=== PATIENT | female | born 1990 | race American Indian/Alaskan Native ===

== ENCOUNTER 2018-02-19 01:50 | Emergency (ER) | payer SELFPAY ==
[2018-02-19 02:30] VITALS: BP 149/98
[2018-02-19] MEDS ORDERED: MOTRIN PO ONE (04:33)
[2018-02-19 04:50] LABS: HCG Qualitative,Urine Negative (Negative)
--- NOTE | 2018-02-19 05:40 | XRay Report ---
FINAL REPORT PROCEDURE: XR SPINE CERVICAL 2-3V TECHNIQUE: Cervical spine radiographs, AP, lateral, and open-mouth odontoid views. CPT 15203 HISTORY: neck pain COMPARISON: No prior studies are available for comparison. FINDINGS: Prevertebral soft tissues: Normal . Alignment: Normal . Vertebral body heights/Disk spaces: Normal . Fracture(s): None . Facets: Normal . Bone mineralization: Normal . IMPRESSION: Normal Examination
--- NOTE | 2018-02-19 05:41 | XRay Report ---
FINAL REPORT PROCEDURE: XR SPINE LUMBOSACRAL 2-3V TECHNIQUE: Lumbar spine radiographs, frontal and lateral views. CPT 23000 HISTORY: lower back pain COMPARISON: No prior studies are available for comparison. FINDINGS: Alignment: Normal . Vertebral body heights/Disk spaces: Normal . Fracture(s): None . Facets: Normal . Bone mineralization: Normal . IMPRESSION: Normal Examination
[2018-02-19] MEDS ORDERED: FLEXERIL PO ONE (07:26)
[2018-02-19] MEDS ORDERED: ULTRAM PO ONE (07:27)
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
== END 2018-02-19 07:52 | disposition home or self-care (01) ==
LOC: ED 01:50
DX: S39.012A Strain of muscle, fascia and tendon of lower back, initial encounter (principal); M54.2 Cervicalgia; I10 Essential (primary) hypertension; Z88.8 Allergy status to other drugs, medicaments and biological substances; V49.59XA Passenger injured in collision with other motor vehicles in traffic accident, initial encounter; Y93.89 Activity, other specified; Y92.89 Other specified places as the place of occurrence of the external cause; Y99.8 Other external cause status
CPT/HCPCS: 72040; 72100; 81025; 99284